=== PATIENT | female | born 1930 | race Caucasian/White ===

== ENCOUNTER → 2019-01-07 | Outpatient (CLI) | payer MEDICARE, OTHER ==
[~2019-01-07] MED LIST: ACET500; ALEN70 PO; ALUM-MAG HYDRO360 ML PO; AMLO10 PO; ASPI81CH PO; ASPI81EC; Biscolax10 MG PR; CALCAVITD; CALMOSEPTINE O3.5 GM TOP; CHOL10002 PO; CVS DISPOSABLE399 ML PR; ENAL20; ENAL20 PO; ESCI10 PO; EXELON1 EACH TD; GLUCOSAMINE/MSM; IBUP600 PO; LETR2.5 PO; LOPE2C PO; MEMA10 PO; METR70GEL; Milk Of Ma400 MG/5 M PO; Mucinex600 MG PO; OLAN5 PO; Pepto-Bism525 MG/15 PO; RIVASTIGMINE3 MG PO; ROBINUL PO; SUPER B COMPLEX; Super B With V1 EACH PO; Zofran Odt8 MG SL
[2019-01-07 12:18] LABS: Source, Urine Voided
[2019-01-07 12:37] LABS: Bilirubin, Urine Neg (Neg); Blood, Urine Neg (Neg); Glucose Qualitative, Urine Neg (Neg); Ketones, Urine Neg (Neg); Leukocyte Esterase, Urine 2+ (Neg); Nitrite, Urine Neg (Neg); Protein, Urine 1+ (Neg); Specific Gravity, Urine 1.015 (1.003-1.022); Urobilinogen, Urine NORM (Normal); pH, Urine 6.5 (5.0-8.0)
[2019-01-07 13:08] LABS: Appearance, Urine Clear (Clear); Color, Urine Yellow (P-Yellow)
[2019-01-07 13:13] LABS: Bacteria Few /hpf; Red Blood Cells, Urine 0-2 /hpf (0-2); Squamous Epithelial Cells Rare /hpf (Few)
[2019-01-07 13:14] LABS: Mucus Light (0-Heavy)
== END | disposition home or self-care (01) ==
LOC: LAB SHORT 10:15 → LAB 10:15
PROVIDERS: Internal Medicine
DX: N39.0 Urinary tract infection, site not specified (principal)
CPT/HCPCS: 81001; 87086

== ENCOUNTER → 2019-01-14 | Outpatient (CLI) | payer MEDICARE, OTHER ==
[2019-01-14 09:53] LABS: Bilirubin, Urine Neg (Neg); Blood, Urine Neg (Neg); Glucose Qualitative, Urine Neg (Neg); Ketones, Urine Neg (Neg); Leukocyte Esterase, Urine 2+ (Neg); Nitrite, Urine Neg (Neg); Protein, Urine Neg (Neg); Specific Gravity, Urine 1.025 (1.003-1.022); Urobilinogen, Urine NORM (Normal)
[2019-01-14 10:00] LABS: Appearance, Urine Clear (Clear); Color, Urine Yellow (P-Yellow)
[2019-01-14 10:13] LABS: Squamous Epithelial Cells Rare /hpf (Few)
[2019-01-14 10:14] LABS: Bacteria Few /hpf
[2019-01-14 10:15] LABS: Mucus Light (0-Heavy); Red Blood Cells, Urine Rare /hpf (0-2)
== END | disposition home or self-care (01) ==
LOC: LAB SHORT 04:15 → LAB 04:15
PROVIDERS: Internal Medicine
DX: N39.0 Urinary tract infection, site not specified (principal)
CPT/HCPCS: 81001; 87086

== ENCOUNTER → 2019-01-31 | Outpatient (CLI) | payer MEDICARE, OTHER | END | disposition home or self-care (01) | LOC: LAB SHORT 16:17 → PLD 16:17 | DX: D48.5 Neoplasm of uncertain behavior of skin (principal) | CPT/HCPCS: 88305 ==